=== PATIENT | male | born 1990 | race Caucasian/White ===

== ENCOUNTER 2024-07-07 19:32 | Inpatient (IN) ==
[2024-07-07] MEDS ORDERED: Al Hydrox/Mg Hydrox/Simet LIQ 30 ML UDC PO PRN (21:22)
[2024-07-08] MEDS: Vitamin THERAPEUTIC TAB PO SCH (10:00)
[2024-07-08 10:21] LABS: HDL Cholesterol 30.8 mg/dL
[2024-07-08] MEDS: Atomoxetine 40 mg CAP (NF) PO SCH (14:08)
[2024-07-09 09:59] VITALS: BP 139/83
== END 2024-07-10 14:00 | disposition home or self-care (01) | DRG 756 ==
LOC: ED 19:32 → EDHOLD 21:22 → BSU 21:53
PROVIDERS: ADMIT Psychiatry & Neurology Psychiatry; ATTEND Student in an Organized Health Care Education/Training Program